=== PATIENT | female | born 1950 | race Two or more races ===

== ENCOUNTER → 2017-12-20 06:43 | Outpatient (CLI) | payer OTHER | END | disposition home or self-care (01) | LOC: LAB 06:43 | DX: E11.69 Type 2 diabetes mellitus with other specified complication (principal); E78.2 Mixed hyperlipidemia; E03.8 Other specified hypothyroidism; E55.9 Vitamin D deficiency, unspecified; Z12.11 Encounter for screening for malignant neoplasm of colon ==

== ENCOUNTER 2017-12-20 08:23 | Outpatient (CLI) | payer OTHER | END 2017-12-20 08:25 | disposition home or self-care (01) | LOC: MAMO-SONO 08:23 | DX: Z12.31 Encounter for screening mammogram for malignant neoplasm of breast (principal); Z87.898 Personal history of other specified conditions ==

== ENCOUNTER 2017-12-23 07:31 | Outpatient (CLI) | payer OTHER | END 2017-12-23 07:34 | disposition home or self-care (01) | LOC: LAB 07:31 | DX: E11.69 Type 2 diabetes mellitus with other specified complication (principal); E78.2 Mixed hyperlipidemia; E03.8 Other specified hypothyroidism; E55.9 Vitamin D deficiency, unspecified; Z12.11 Encounter for screening for malignant neoplasm of colon ==

== ENCOUNTER 2018-01-13 09:49 | Outpatient (CLI) | payer OTHER | END 2018-01-13 10:00 | disposition home or self-care (01) | LOC: NUCLEAR 09:49 | DX: M81.0 Age-related osteoporosis without current pathological fracture (principal); Z13.820 Encounter for screening for osteoporosis; I73.9 Peripheral vascular disease, unspecified; I87.2 Venous insufficiency (chronic) (peripheral) ==

== ENCOUNTER 2018-05-28 07:10 | Outpatient (CLI) | payer OTHER | END 2018-05-28 07:50 | disposition home or self-care (01) | LOC: LAB 07:10 | DX: E78.2 Mixed hyperlipidemia (principal); R73.09 Other abnormal glucose; E03.8 Other specified hypothyroidism; E55.9 Vitamin D deficiency, unspecified ==

== ENCOUNTER 2018-08-08 04:42 | Emergency (ER) | payer OTHER ==
[~2018-08-08] VITALS: Ht 160 cm; Wt 65.3 kg
[2018-08-08] MEDS ORDERED: PROTONIX40 MG PO (20:18)
[2018-08-08] MEDS ORDERED: ZANTAC150 MG PO (20:19)
[2018-08-08] MEDS ORDERED: CARAFATE1 GM/10 ML PO (20:20)
[2018-08-08] MEDS ORDERED: INTESTINEX680 M1 PO (20:24)
[2018-08-08] MEDS ORDERED: PYRIDIUM200 MG PO (20:24)
== END 2018-08-08 20:51 | disposition home or self-care (01) ==
LOC: ER 04:42
DX: K29.60 Other gastritis without bleeding (principal); E86.0 Dehydration; N30.80 Other cystitis without hematuria; T36.8X5A Adverse effect of other systemic antibiotics, initial encounter; Y92.89 Other specified places as the place of occurrence of the external cause

== ENCOUNTER 2018-10-07 07:56 | Outpatient (CLI) | payer OTHER ==
[~2018-10-07 07:56] MED LIST: CARAFATE1 GM/10 ML PO; INTESTINEX680 M1 PO; PROTONIX40 MG PO; PYRIDIUM200 MG PO; ZANTAC150 MG PO
== END 2018-10-07 08:06 | disposition home or self-care (01) ==
LOC: LAB 07:56
DX: N39.0 Urinary tract infection, site not specified (principal); R73.09 Other abnormal glucose

== ENCOUNTER 2018-11-15 16:41 | Inpatient (IN) | payer OTHER ==
[~2018-11-15] VITALS: Ht 160 cm; Wt 67.1 kg
[2018-11-15] MEDS ORDERED: LEVEMIR FL100 UNIT/1 (17:29)
[2018-11-15] MEDS ORDERED: JANUVIA100 MG (17:30)
== END 2018-11-18 08:36 | disposition left against medical advice (07) | DRG 623 ==
LOC: ER 16:41 → MEDJ 11-16 08:55
PROVIDERS: ADMIT Internal Medicine
PROC: B44HZZZ Ultrasonography of Bilateral Lower Extremity Arteries (ICD-10-PCS; 2018-11-16)
PROC: B54DZZZ Ultrasonography of Bilateral Lower Extremity Veins (ICD-10-PCS; 2018-11-16)
PROC: CP1F1ZZ Planar Nuclear Medicine Imaging of Bilateral Lower Extremities using Technetium 99m (Tc-99m) (ICD-10-PCS; 2018-11-16)
PROC: 0JBQ0ZZ Excision of Right Foot Subcutaneous Tissue and Fascia, Open Approach (ICD-10-PCS; principal; 2018-11-17)
DX: E11.621 Type 2 diabetes mellitus with foot ulcer (principal); E11.52 Type 2 diabetes mellitus with diabetic peripheral angiopathy with gangrene; I96 Gangrene, not elsewhere classified; M86.171 Other acute osteomyelitis, right ankle and foot; L97.513 Non-pressure chronic ulcer of other part of right foot with necrosis of muscle; L03.032 Cellulitis of left toe; E83.52 Hypercalcemia; I77.89 Other specified disorders of arteries and arterioles; E11.51 Type 2 diabetes mellitus with diabetic peripheral angiopathy without gangrene; E11.65 Type 2 diabetes mellitus with hyperglycemia; Z79.4 Long term (current) use of insulin

== ENCOUNTER 2019-01-28 06:50 | Outpatient (CLI) | payer OTHER ==
[~2019-01-28 06:50] MED LIST changes: +JANUVIA100 MG; +LEVEMIR FL100 UNIT/1
== END 2019-01-28 06:56 | disposition home or self-care (01) ==
LOC: LAB 06:50
DX: E11.65 Type 2 diabetes mellitus with hyperglycemia (principal); E78.49 Other hyperlipidemia

== ENCOUNTER → 2019-04-29 06:55 | Outpatient (CLI) | payer OTHER | END | disposition home or self-care (01) | LOC: LAB 06:55 | DX: E11.65 Type 2 diabetes mellitus with hyperglycemia (principal); A63.0 Anogenital (venereal) warts; I10 Essential (primary) hypertension ==

== ENCOUNTER 2019-08-25 07:06 | Outpatient (CLI) | payer OTHER | END 2019-08-25 07:35 | disposition home or self-care (01) | LOC: LAB 07:06 | PROVIDERS: ATTEND Internal Medicine | DX: D64.89 Other specified anemias (principal); N39.0 Urinary tract infection, site not specified; R80.8 Other proteinuria; Z13.89 Encounter for screening for other disorder; E11.65 Type 2 diabetes mellitus with hyperglycemia; E78.2 Mixed hyperlipidemia ==

== ENCOUNTER → 2019-08-27 06:23 | Outpatient (CLI) | payer OTHER | END | disposition home or self-care (01) | LOC: LAB 06:23 | PROVIDERS: ATTEND Internal Medicine | DX: D64.89 Other specified anemias (principal); N39.0 Urinary tract infection, site not specified; Z13.89 Encounter for screening for other disorder; R80.8 Other proteinuria; R10.84 Generalized abdominal pain; Z13.9 Encounter for screening, unspecified ==

== ENCOUNTER → 2019-10-09 07:05 | Outpatient (CLI) | payer OTHER | END | disposition home or self-care (01) | LOC: LAB 07:05 | PROVIDERS: ATTEND Internal Medicine | DX: E11.9 Type 2 diabetes mellitus without complications (principal); E78.49 Other hyperlipidemia; D64.89 Other specified anemias; R10.84 Generalized abdominal pain; E03.8 Other specified hypothyroidism; N39.0 Urinary tract infection, site not specified ==

== ENCOUNTER 2019-10-27 08:01 | Outpatient (CLI) | payer OTHER | END 2019-10-27 08:11 | disposition home or self-care (01) | LOC: NUCLEAR 08:01 | PROVIDERS: ATTEND Internal Medicine | DX: R07.89 Other chest pain (principal) | CPT/HCPCS: 78452; 93017; A9500; J0153 ==

== ENCOUNTER 2019-11-09 08:03 | Outpatient (CLI) | payer OTHER | END 2019-11-09 08:11 | disposition home or self-care (01) | LOC: MAMO-SONO 08:03 | PROVIDERS: ATTEND Obstetrics & Gynecology | DX: Z12.31 Encounter for screening mammogram for malignant neoplasm of breast (principal) ==

== ENCOUNTER 2019-12-03 06:34 | Outpatient (CLI) | payer OTHER | END 2019-12-03 06:41 | disposition home or self-care (01) | LOC: LAB 06:34 | DX: E11.65 Type 2 diabetes mellitus with hyperglycemia (principal); E78.2 Mixed hyperlipidemia; D64.89 Other specified anemias; N39.0 Urinary tract infection, site not specified; R10.84 Generalized abdominal pain; R80.8 Other proteinuria; N18.1 Chronic kidney disease, stage 1 ==

== ENCOUNTER 2019-12-28 07:00 | Outpatient (CLI) | payer OTHER | END 2019-12-28 07:12 | disposition home or self-care (01) | LOC: LAB 07:00 | DX: M86.171 Other acute osteomyelitis, right ankle and foot (principal); E11.42 Type 2 diabetes mellitus with diabetic polyneuropathy ==

== ENCOUNTER → 2020-01-11 06:27 | Outpatient (CLI) | payer OTHER | END | disposition home or self-care (01) | LOC: LAB 06:27 | DX: D64.89 Other specified anemias (principal); M86.171 Other acute osteomyelitis, right ankle and foot ==

== ENCOUNTER → 2020-02-02 06:21 | Outpatient (CLI) | payer OTHER | END | disposition home or self-care (01) | LOC: LAB 06:21 | PROVIDERS: ATTEND Internal Medicine | DX: D64.89 Other specified anemias (principal); N39.0 Urinary tract infection, site not specified; R10.84 Generalized abdominal pain; E55.9 Vitamin D deficiency, unspecified; R80.8 Other proteinuria; N18.1 Chronic kidney disease, stage 1 ==

== ENCOUNTER 2020-02-19 07:14 | Outpatient (CLI) | payer OTHER | END 2020-02-19 07:25 | disposition home or self-care (01) | LOC: LAB 07:14 | DX: I70.235 Atherosclerosis of native arteries of right leg with ulceration of other part of foot (principal); L03.115 Cellulitis of right lower limb ==

== ENCOUNTER 2020-02-26 06:19 | Outpatient (CLI) | payer OTHER | END 2020-02-26 06:27 | disposition home or self-care (01) | LOC: LAB 06:19 | DX: B35.1 Tinea unguium (principal); B16.9 Acute hepatitis B without delta-agent and without hepatic coma ==

== ENCOUNTER 2020-04-07 07:07 | Outpatient (CLI) | payer OTHER | END 2020-04-07 07:25 | disposition home or self-care (01) | LOC: LAB 07:07 | PROVIDERS: ATTEND Internal Medicine | DX: I10 Essential (primary) hypertension (principal); E11.65 Type 2 diabetes mellitus with hyperglycemia; R19.5 Other fecal abnormalities; E83.52 Hypercalcemia ==

== ENCOUNTER 2020-04-08 06:34 | Outpatient (CLI) | payer OTHER | END 2020-04-08 06:47 | disposition home or self-care (01) | LOC: LAB 06:34 | DX: I10 Essential (primary) hypertension (principal); B16.0 Acute hepatitis B with delta-agent with hepatic coma; B35.1 Tinea unguium; E11.65 Type 2 diabetes mellitus with hyperglycemia; R19.5 Other fecal abnormalities; E83.52 Hypercalcemia ==

== ENCOUNTER 2020-04-08 14:24 | Outpatient (CLI) | payer OTHER | END 2020-04-08 14:35 | disposition home or self-care (01) | LOC: SONOGRAMA 14:24 | PROVIDERS: ATTEND Internal Medicine | DX: E04.8 Other specified nontoxic goiter (principal) ==

== ENCOUNTER 2020-05-03 14:04 | Outpatient (CLI) | payer OTHER | END 2020-05-03 14:10 | disposition home or self-care (01) | LOC: NUCLEAR 14:04 | PROVIDERS: ATTEND Internal Medicine | DX: M81.0 Age-related osteoporosis without current pathological fracture (principal) ==

== ENCOUNTER 2020-06-15 20:08 | Emergency (ER) | payer OTHER ==
[~2020-06-15] VITALS: Ht 160 cm; Wt 72.6 kg
[2020-06-15] MEDS ORDERED: HUMALOG100 UNIT/2 (20:36)
[2020-06-15] MEDS ORDERED: FOSAMAX70 MG (20:37)
[2020-06-15] MEDS ORDERED: VITAMIN D3250 MC1 (20:37)
== END 2020-06-15 22:25 | disposition home or self-care (01) ==
LOC: ER 20:08
DX: R60.0 Localized edema (principal); L27.1 Localized skin eruption due to drugs and medicaments taken internally; T45.8X5A Adverse effect of other primarily systemic and hematological agents, initial encounter; Y92.89 Other specified places as the place of occurrence of the external cause

== ENCOUNTER → 2020-07-25 06:16 | Outpatient (CLI) | payer OTHER ==
[~2020-07-25 06:16] MED LIST changes: +FOSAMAX70 MG; +HUMALOG100 UNIT/2; +VITAMIN D3250 MC1
== END | disposition home or self-care (01) ==
LOC: LAB 06:16
DX: E11.65 Type 2 diabetes mellitus with hyperglycemia (principal); I10 Essential (primary) hypertension; E78.2 Mixed hyperlipidemia; B35.1 Tinea unguium; B16.9 Acute hepatitis B without delta-agent and without hepatic coma

== ENCOUNTER 2020-11-25 06:25 | Outpatient (CLI) | payer OTHER | END 2020-11-25 06:26 | disposition home or self-care (01) | LOC: LAB 06:25 | DX: E78.2 Mixed hyperlipidemia (principal); I10 Essential (primary) hypertension; E11.65 Type 2 diabetes mellitus with hyperglycemia ==

== ENCOUNTER → 2021-02-24 06:16 | Outpatient (CLI) | payer OTHER | END | disposition home or self-care (01) | LOC: LAB 06:16 | PROVIDERS: ATTEND Student in an Organized Health Care Education/Training Program | DX: I10 Essential (primary) hypertension (principal); E11.65 Type 2 diabetes mellitus with hyperglycemia; E78.2 Mixed hyperlipidemia ==

== ENCOUNTER → 2021-04-04 06:21 | Outpatient (CLI) | payer OTHER | END | disposition home or self-care (01) | LOC: LAB 06:21 | PROVIDERS: ATTEND Internal Medicine | DX: E03.8 Other specified hypothyroidism (principal); E11.51 Type 2 diabetes mellitus with diabetic peripheral angiopathy without gangrene; I11.9 Hypertensive heart disease without heart failure; E78.2 Mixed hyperlipidemia; E55.9 Vitamin D deficiency, unspecified; Z68.26 Body mass index [BMI] 26.0-26.9, adult; M81.0 Age-related osteoporosis without current pathological fracture; K76.89 Other specified diseases of liver ==

== ENCOUNTER 2021-06-18 09:36 | Emergency (ER) | payer OTHER ==
[~2021-06-18] VITALS: Ht 160 cm; Wt 76.7 kg
== END 2021-06-18 11:00 | disposition home or self-care (01) ==
LOC: ER 09:36
DX: J02.9 Acute pharyngitis, unspecified (principal); H60.92 Unspecified otitis externa, left ear; E11.9 Type 2 diabetes mellitus without complications; Z79.4 Long term (current) use of insulin; Z88.8 Allergy status to other drugs, medicaments and biological substances

== ENCOUNTER 2021-07-10 06:22 | Outpatient (CLI) | payer OTHER | END 2021-07-10 06:30 | disposition home or self-care (01) | LOC: LAB 06:22 | PROVIDERS: ATTEND Student in an Organized Health Care Education/Training Program | DX: I11.9 Hypertensive heart disease without heart failure (principal); E11.51 Type 2 diabetes mellitus with diabetic peripheral angiopathy without gangrene; E78.2 Mixed hyperlipidemia; E03.8 Other specified hypothyroidism; E55.9 Vitamin D deficiency, unspecified; Z68.26 Body mass index [BMI] 26.0-26.9, adult; M81.0 Age-related osteoporosis without current pathological fracture; K76.9 Liver disease, unspecified; B19.9 Unspecified viral hepatitis without hepatic coma ==

== ENCOUNTER 2021-07-14 12:50 | Emergency (ER) | payer OTHER ==
[~2021-07-14] VITALS: Ht 162.6 cm; Wt 70.3 kg
[2021-07-14] MEDS ORDERED: SOLIQUA 100 UNIT3 ML SQ (12:58)
== END 2021-07-14 14:47 | disposition home or self-care (01) ==
LOC: ER 12:50
DX: R42 Dizziness and giddiness (principal)

== ENCOUNTER 2021-08-07 02:49 | Emergency (ER) | payer OTHER ==
[~2021-08-07] VITALS: Ht 160 cm; Wt 76.7 kg
[~2021-08-07 02:49] MED LIST changes: +SOLIQUA 100 UNIT3 ML SQ
[2021-08-07] MEDS ORDERED: HUMALOG MI100 UNIT/2 (02:57)
[2021-08-07] MEDS ORDERED: TOUJEO MAX300 UNIT/1 (02:58)
[2021-08-07] MEDS ORDERED: PEPCID40 MG PO (07:48)
[2021-08-07] MEDS ORDERED: ONDANSETRON ODT4 MG PO (07:48)
== END 2021-08-07 08:05 ==
LOC: ER 02:49
DX: K29.70 Gastritis, unspecified, without bleeding (principal); E11.65 Type 2 diabetes mellitus with hyperglycemia; Z79.4 Long term (current) use of insulin; Z88.8 Allergy status to other drugs, medicaments and biological substances

== ENCOUNTER 2021-09-18 07:32 | Outpatient (CLI) | payer OTHER ==
[~2021-09-18 07:32] MED LIST changes: +HUMALOG MI100 UNIT/2; +ONDANSETRON ODT4 MG PO; +PEPCID40 MG PO; +TOUJEO MAX300 UNIT/1
== END 2021-09-18 07:49 | disposition home or self-care (01) ==
LOC: RAD 07:32
PROVIDERS: ATTEND General Practice
DX: R10.9 Unspecified abdominal pain (principal); R10.2 Pelvic and perineal pain; Z12.31 Encounter for screening mammogram for malignant neoplasm of breast; N60.11 Diffuse cystic mastopathy of right breast; N60.12 Diffuse cystic mastopathy of left breast; K29.70 Gastritis, unspecified, without bleeding

== ENCOUNTER 2021-12-22 06:39 | Outpatient (CLI) | payer OTHER | END 2021-12-22 06:58 | disposition home or self-care (01) | LOC: LAB 06:39 | PROVIDERS: ATTEND Internal Medicine | DX: E11.51 Type 2 diabetes mellitus with diabetic peripheral angiopathy without gangrene (principal); I11.9 Hypertensive heart disease without heart failure; E78.2 Mixed hyperlipidemia; E03.8 Other specified hypothyroidism; E55.9 Vitamin D deficiency, unspecified; Z68.26 Body mass index [BMI] 26.0-26.9, adult; M81.0 Age-related osteoporosis without current pathological fracture; K76.9 Liver disease, unspecified; K92.2 Gastrointestinal hemorrhage, unspecified; Z79.4 Long term (current) use of insulin; E11.69 Type 2 diabetes mellitus with other specified complication; K80.20 Calculus of gallbladder without cholecystitis without obstruction; E03.9 Hypothyroidism, unspecified; K50.811 Crohn's disease of both small and large intestine with rectal bleeding ==

== ENCOUNTER → 2022-02-07 | Emergency (ER) | payer OTHER ==
[~2022-02-07] VITALS: Ht 160 cm; Wt 72.6 kg
== END | disposition expired ==
LOC: ER 12:43